=== PATIENT | female | born 1985 | race Caucasian/White ===

== ENCOUNTER 2017-04-20 17:00 | Inpatient (IN) | payer OTHER ==
[2017-04-20] MEDS ORDERED: AMPICILLIN - 100 ML IVPB ONE (17:30)
[2017-04-20] MEDS ORDERED: DEXTROSE 5%-LACTATED RINGERS 1,000 ML IV SCH (18:00)
[2017-04-20] MEDS ORDERED: TUBERCULIN PPD 5 TU/0.1ML SYRINGE (IN PATIENT USE ONLY) ID ONE (18:00)
[2017-04-20 18:35] VITALS: BMI 30.6
--- NOTE | 2017-04-20 18:53 | HP ---
Past Medical History - Primary Care Physician PCP:: Juliet Mendez - Admission Chief Complaint: 31yo P1 @ 39.6wks admitted for augmentation of labor, + Fm, No VB, no LOF, + ctx History of Present Illness: 1. GBS + 2.Kidney donor History Source: Patient Limitations to Obtaining History: No Limitations - Past Medical History ...: 2 ...Para: 1 (2012, 9lb) ...Term: 1 ...: 0 ...Spon : 0 ...Induced : 0 ...Multiple Gestation: 0 ...LMP: 07/16/16 ... Weeks Gestation by Dates: 39.6 ...EDC by Dates: 04/21/17 ...EDC by Sono: 04/22/17 - Past Surgical History Hx Myomectomy: No Hx Transabdominal Cerclage: No Additional Surgical History: Kidney donor - Smoking History Smoking history: Never smoked Have you smoked in the past 12 months: No Aproximately how many cigarettes per day: 0 - Alcohol/Substance Use Hx Alcohol Use: No History of Substance Use: reports: None - Social History Usual Living Arrangement: Yes: With Spouse, With Child History of Recent Travel: No Home Medications - Allergies Allergies/Adverse Reactions: Allergies Allergy/AdvReac Type Severity Reaction Status Date / Time No Known Allergies Allergy Verified 04/20/17 17:45 - Home Medications Home Medications: Ambulatory Orders Pnv95/Ferrous Fumarate/FA [ Vitamin Tablet] 1 each PO DAILY 04/20/17 Review of Systems - Review of Systems Constitutional: reports: No Symptoms Eyes: reports: No Symptoms HENT: reports: No Symptoms Neck: reports: No Symptoms Cardiovascular: reports: No Symptoms Respiratory: reports: No Symptoms Gastrointestinal: reports: No Symptoms Genitourinary: reports: No Symptoms Breasts: reports: No Symptoms Reported Musculoskeletal: reports: No Symptoms Integumentary: reports: No Symptoms Neurological: reports: No Symptoms Endocrine: reports: No Symptoms Hematology/Lymphatic: reports: No Symptoms Psychiatric: reports: No Symptoms Physical Exam - Maternity Vital Signs: Vital Signs Temperature 98.1 F 04/20/17 17:00 Pulse Rate 87 04/20/17 17:00 Respiratory Rate 18 04/20/17 17:00 Blood Pressure 116/75 04/20/17 17:00 O2 Sat by Pulse Oximetry (%) Constitutional: Yes: Well Nourished Eyes: Yes: WNL HENT: Yes: WNL Neck: Yes: WNL Cardiovascular: Yes: WNL Lungs: Clear to auscultation Breast(s): Yes: WNL - Abdominal Exam/OB Fundal Height: 39 Number of Fetuses: Single Presentation: Vertex Contractions: Yes Regularity: Irregular Intensity: Mild Monitor Mode: External Heart Rate (range): 140 Heart Rate Location: Midline Category: I Accelerations: Uniform Decelerations: None - Vaginal Exam/OB Vaginal Bleediing: No Speculum Exam: No Dilatation (cm): 2-3 Effacement (%): 50% Amniotic Membrane Status: Intact Presentation: Vertex/Position Station: -3 - Physical Exam Musculoskeletal: Yes: WNL Extremities: Yes: WNL Edema: No Integumentary: Yes: WNL Deep Tendon Reflex Grade: Normal +2 ...Motor Strength: WNL Psychiatric: Yes: WNL Assessment/Plan 31yo P1 @ 39.6wks augmentation of labor Admit to L&D IVF, Labs MF status reassuring Ampicillin for GBS prophylaxis Oxytocin for augmentation now Epidural prior to AROM
[2017-04-20 19:23] LABS: BASOPHIL 0.4 % (0-2.0); MCH 27.6 pg (25.7-33.7); MCHC 33.1 g/dl (32.0-36.0); MEAN CELL VOLUME 83.3 fl (80-96); NEUTROPHILS 76.2 % (42.8-82.8); PLATELET COUNT 238 K/MM3 (134-434); RDW 14.6 % (11.6-15.6); WHITE BLOOD COUNT 10.6 K/mm3 (4.0-10.0)
[2017-04-20 19:39] LABS: ACTIVATED PTT 24.9 SECONDS (26.9-34.4)
[2017-04-20 19:51] LABS: CALCIUM 8.6 mg/dL (8.5-10.1); COCKROFT - GAULT 166.7445; CREATININE 0.6 mg/dL (0.55-1.02)
[2017-04-20] MEDS ORDERED: OXYTOCIN 15 UNITS/ LR 250 ML 250 ML IVPB SCH (21:00)
[2017-04-20] MEDS: AMPICILLIN - 100 ML IVPB SCH (21:30)
[2017-04-20] MEDS ORDERED: ELECTROLYTE-148 SOLN 500 ML IV ONE (23:00)
[2017-04-20] MEDS ORDERED: FENTANYL/BUPIVACAINE/NS/PF - PCEA - 50 ML DISP.SYRIN EP SCH (23:15)
[2017-04-21] MEDS ORDERED: ELECTROLYTE-148 SOLN 1,000 ML IV SCH
--- NOTE | 2017-04-21 00:57 | PN ---
Progress Note, Labor Vaginal Exam #1 Labor Exam Date: 04/21/17 Labor Exam Time: 00:45 Heart Rate (range): 145 good varriability, + accels, no decels Dilatation: 4 Effacement (%): 60% Amniotic Membrane Status: Ruptured (clear) Presentation: Vertex/Position Station: -3 Remarks: 31 yo P1 in early labor AROM for augmentation cont. Pitocin MF status reassuring rectum full of stool for enema
[2017-04-21] MEDS: AMPICILLIN - 100 ML IVPB SCH ×2 (01:30→05:30)
[2017-04-21] MEDS ORDERED: BISACODYL 10 MG SUPP.RECT RC PRN (08:04)
[2017-04-21] MEDS ORDERED: WITCH HAZEL 50% (TUCKS) 40 PAD/JAR PAD TP PRN (08:04)
[2017-04-21] MEDS ORDERED: METHYLERGONOVINE MALEATE 0.2 MG/1 ML AMP IM PRN (08:04)
[2017-04-21] MEDS ORDERED: BENZOCAINE 20% 57 GM BOTTLE TP PRN (08:04)
[2017-04-21] MEDS ORDERED: BENZOCAINE 28 GM HEMORRHOIDAL OINTMENT TP PRN (08:04)
--- NOTE | 2017-04-21 08:04 | PN ---
Delivery - Delivery Type of Anesthesia: Epidural Episiotomy/Laceration: None EBL (cc): 300 Delivery, Single - Stages of Labor Date 1st Stage Initiatied: 04/20/17 Time 1st Stage Initiated: 21:30 Date 2nd Stage Initiated: 04/21/17 Time 2nd Stage Initiated: 07:15 Date of Delivery: 04/21/17 Time of Delivery: 07:44 Date Placenta Delivered: 04/21/17 Time Placenta Delivered: 07:46 Placenta: Yes: Spontaneous - Condition of Infant Public Health Nutritionist/Senior Web Services Developer Present: No Gender: Male Weight: 7 lb 4 oz Position: Left, OA - 1 Minute Total Score: 9 5 Minutes Total Score: 9 - [place] Feeding Plan Initial Plan: Elected not to breastfeed exclusively throughout hospitalization Benefits of Exclusively reinforced: Yes Remarks - Remarks Remarks: Uncomplicated head and shoulder delivery cord around the neck once, reduced No lacerations Delayed cord clamping Mother and baby stable in LDR
[2017-04-21] MEDS ORDERED: D5W-LR W/ 20 UNITS OXYTOCIN 1,000 ML IV SCH (08:15)
[2017-04-21] MEDS: IBUPROFEN 600 MG TABLET (FP) PO PRN ×2 (09:50→15:31)
[2017-04-21] MEDS: ACETAMINOPHEN 325 MG TABLET (FP) PO PRN ×2 (09:50→15:32)
--- NOTE | 2017-04-21 09:51 | HOSP ---
Subjective - Review of Symptoms Events since last encounter: This is a 31 yo woman who presented for delivery of child who fell while attempting to ambulate s/p vaginal delivery. She attempted to ambulate and felt weak s/p epidural anesthesia for delivery. The patient states she fell onto b/l knees then forward onto her hands. She denies head trauma. CNII-XII intact. Patient still with decreased sensation to BLE. Redness noted to b/l knees with right>left. No swelling appreciated. General: No: Chills, Night Sweats HEENT: No: Head Aches, Visual Changes Pulmonary: No: Dyspnea, Cough Cardiovascular: No: Chest Pain, Palpitations Gastrointestinal: Yes: Abdominal Pain. No: Nausea, Vomiting Genitourinary: No: Dysuria, Frequency Musculoskeletal: Yes: Joint Pain (b/l knees s/p fall) Neurological: Yes: Weakness (BLE). No: Numbness Physical Examination Vital Signs: Vital Signs Temperature 98.4 F 04/21/17 09:00 Pulse Rate 77 04/21/17 09:00 Respiratory Rate 18 04/21/17 09:00 Blood Pressure 118/66 04/21/17 09:00 O2 Sat by Pulse Oximetry (%) 100 04/21/17 07:30 Constitutional: Yes: Well Nourished, No Distress, Calm Eyes: Yes: Conjunctiva Clear, EOM Intact HENT: Yes: Atraumatic Neck: Yes: Supple, Trachea Midline Cardiovascular: Yes: Regular Rate and Rhythm Respiratory: Yes: Regular, CTA Bilaterally Gastrointestinal: Yes: Normal Bowel Sounds ...Rectal Exam: Yes: Deferred Musculoskeletal: Yes: Other (pain and erythema noted to b/l knees with R>L) Edema: LUE: 2+, RUE: 2+ Peripheral Pulses WNL: Yes Peripheral Pulses: Left Radial: 2+, Right Radial: 2+, Left Doralis Pedis: 2+, Right Dorsalis Pedis: 2+ Integumentary: Yes: Erythema (b/l anterior knees) ...Motor Strength: WNL Labs: CBC, BMP 04/20/17 19:00 04/20/17 19:11 Hospitalist Encounter Assessment: This is a 31 yo woman who presented for delivery of child who fell while attempting to ambulate s/p vaginal delivery. She attempted to ambulate and felt weak s/p epidural anesthesia for delivery. The patient states she fell onto b/l knees then forward onto her hands. She denies head trauma. CNII-XII intact. Patient still with decreased sensation to BLE. Redness noted to b/l knees with right>left. No swelling appreciated. No deformity present. (-) Vannesa's test. Outcome: xrays ordered for b/l knees. Wet read by me: -Left knee: No fractures present. -Right Knee: No fractures present. Official read by Joshua: No acute osseous deformities or fractures. No patellar effusion. #knee pain - Ice - Tylenol PRN -Case discussed with Vanessa operations controller. Aware of plan. Primary Physician Notified: Juliet Mendez Time PMD Notified: 10:55 Recommendations/Interventions: Ice packs PRN Tylenol PRN
[2017-04-21] MEDS: PRENATAL VITAMINS W/ FOLIC ACID TABLET (FP) PO SCH (10:00)
[2017-04-21] MEDS: FERROUS SO4 325 MG TABLET (FP) PO SCH ×2 (10:00→18:35)
[2017-04-22] MEDS: ACETAMINOPHEN 325 MG TABLET (FP) PO PRN ×4 (04:03→21:11)
[2017-04-22] MEDS: IBUPROFEN 600 MG TABLET (FP) PO PRN ×4 (04:03→21:12)
[2017-04-22 07:39] LABS: BASOPHIL 0.5 % (0-2.0); EOSINOPHIL 1.8 % (0-4.5); MCHC 33.4 g/dl (32.0-36.0); MEAN PLT VOLUME 8.8 fl (7.5-11.1); NEUTROPHILS 74.6 % (42.8-82.8); PLATELET COUNT 166 K/MM3 (134-434); WHITE BLOOD COUNT 10.3 K/mm3 (4.0-10.0)
[2017-04-22] MEDS: FERROUS SO4 325 MG TABLET (FP) PO SCH ×2 (08:58→17:02)
[2017-04-22] MEDS: PRENATAL VITAMINS W/ FOLIC ACID TABLET (FP) PO SCH (09:00)
--- NOTE | 2017-04-22 15:19 | PN ---
Post Progress Note - Subjective Subjective: No complaints. Post Day: 1 Type of Delivery: Vital Signs: Vital Signs Temperature 97.8 F 04/22/17 07:34 Pulse Rate 81 04/22/17 07:34 Respiratory Rate 18 04/22/17 07:34 Blood Pressure 111/66 04/22/17 07:34 O2 Sat by Pulse Oximetry (%) 100 04/21/17 07:30 Breast Exam: Yes: Soft Uterus: Yes: Fundus Firm, Fundus below umbilicus Abdomen/GI: Yes: Abdomen soft, Passing flatus, Tolerating PO Lochia: Yes: Rubra Lochia, amount: Small Extremities: Yes: Calves non-tender, Edema (trace) Perineum: Yes: Intact Activity: Ambulating - Labs Labs: CBC WBC 10.3 K/mm3 (4.0-10.0) H 04/22/17 06:40 RBC 3.34 M/mm3 (3.60-5.2) L 04/22/17 06:40 Hgb 9.4 GM/dL (10.7-15.3) L D 04/22/17 06:40 Hct 28.1 % (32.4-45.2) L D 04/22/17 06:40 MCV 84.0 fl (80-96) 04/22/17 06:40 MCHC 33.4 g/dl (32.0-36.0) 04/22/17 06:40 RDW 15.0 % (11.6-15.6) 04/22/17 06:40 Plt Count 166 K/MM3 (134-434) D 04/22/17 06:40 MPV 8.8 fl (7.5-11.1) 04/22/17 06:40 Neutrophils % 74.6 % (42.8-82.8) 04/22/17 06:40 Lymphocytes % 15.8 % (8-40) 04/22/17 06:40 Monocytes % 7.3 % (3.8-10.2) 04/22/17 06:40 Eosinophils % 1.8 % (0-4.5) 04/22/17 06:40 Basophils % 0.5 % (0-2.0) 04/22/17 06:40 Assessment/Plan 31yo P2 s/p , doing well stable, afebrile. care instructions reviewed. Continue routine care. Ambulation encouraged Discharge instruction reviewed.
[2017-04-22] MEDS ORDERED: SENNOSIDES/DOCUSATE COMBO (SENNA PLUS) TABLET (UD) PO PRN (22:00)
[2017-04-23] MEDS: ACETAMINOPHEN 325 MG TABLET (FP) PO PRN ×2 (05:34→11:47)
[2017-04-23] MEDS: IBUPROFEN 600 MG TABLET (FP) PO PRN ×2 (05:35→11:46)
--- NOTE | 2017-04-23 07:53 | PN ---
Post Progress Note - Subjective Subjective: Patient without acute complaints. Reports tolerating oral intake without nausea or vomiting. Ambulating without dizziness. Denies fevers or chills. Pain well controlled with oral pain medication. with supplementation. Passing flatus. Post Day: 2 Type of Delivery: Vital Signs: Vital Signs Temperature 98.3 F 04/22/17 22:00 Pulse Rate 75 04/22/17 22:00 Respiratory Rate 18 04/22/17 22:00 Blood Pressure 135/74 04/22/17 22:00 O2 Sat by Pulse Oximetry (%) 100 04/21/17 07:30 Breast Exam: Yes: Soft Uterus: Yes: Fundus Firm, Fundus below umbilicus Abdomen/GI: Yes: Abdomen soft, Passing flatus, Tolerating PO. No: Abdominal Distention, Tender Lochia, amount: Small Extremities: Yes: Calves non-tender, Edema (trace) Activity: Ambulating - Labs Labs: CBC WBC 10.3 K/mm3 (4.0-10.0) H 04/22/17 06:40 RBC 3.34 M/mm3 (3.60-5.2) L 04/22/17 06:40 Hgb 9.4 GM/dL (10.7-15.3) L D 04/22/17 06:40 Hct 28.1 % (32.4-45.2) L D 04/22/17 06:40 MCV 84.0 fl (80-96) 04/22/17 06:40 MCHC 33.4 g/dl (32.0-36.0) 04/22/17 06:40 RDW 15.0 % (11.6-15.6) 04/22/17 06:40 Plt Count 166 K/MM3 (134-434) D 04/22/17 06:40 MPV 8.8 fl (7.5-11.1) 04/22/17 06:40 Neutrophils % 74.6 % (42.8-82.8) 04/22/17 06:40 Lymphocytes % 15.8 % (8-40) 04/22/17 06:40 Monocytes % 7.3 % (3.8-10.2) 04/22/17 06:40 Eosinophils % 1.8 % (0-4.5) 04/22/17 06:40 Basophils % 0.5 % (0-2.0) 04/22/17 06:40 Assessment/Plan 31 yo ppd2 sp , doing well 1. Patient stable for discharge home today. 2. Patient encouraged to contact MD for: - Severe pain not controlled by oral pain medication - Fevers or chills - Nausea or vomiting, intolerance of oral intake 3. Patient to follow up in office in 4-6 weeks for visit
[2017-04-23] MEDS: FERROUS SO4 325 MG TABLET (FP) PO SCH (08:27)
[2017-04-23 09:43] VITALS: BP 113/74; PULSE 66; TEMP 98.5
[2017-04-23] MEDS: PRENATAL VITAMINS W/ FOLIC ACID TABLET (FP) PO SCH (10:17)
--- NOTE | 2017-05-05 09:59 | DS ---
Physical Exam-DETENTION SERGEANT Vital Signs: Vital Signs Temperature 98.5 F 04/23/17 09:41 Pulse Rate 66 04/23/17 09:41 Respiratory Rate 18 04/23/17 09:41 Blood Pressure 113/74 04/23/17 09:41 O2 Sat by Pulse Oximetry (%) 100 04/21/17 07:30 Constitutional: Yes: Well Nourished Eyes: Yes: WNL HENT: Yes: WNL Neck: Yes: WNL Cardiovascular: Yes: WNL Respiratory: Yes: WNL Gastrointestinal: Yes: WNL Renal/: Yes: WNL Pelvis: Yes: WNL External Genitalia: Yes: Normal Vaginal Exam: Yes: Normal Uterus: Yes: Normal ....Post : Yes: Uterus firm, Uterus non-tender Breast(s): Yes: WNL Musculoskeletal: Yes: WNL Extremities: Yes: WNL Neurological: Yes: WNL ...Motor Strength: WNL Psychiatric: Yes: WNL Labs: CBC, BMP 04/22/17 06:40 04/20/17 19:11 Delivery - Delivery Type of Anesthesia: Epidural Episiotomy/Laceration: None EBL (cc): 300 Delivery, Single - Stages of Labor Date 1st Stage Initiatied: 04/20/17 Time 1st Stage Initiated: 21:30 Date 2nd Stage Initiated: 04/21/17 Time 2nd Stage Initiated: 07:15 Date of Delivery: 04/21/17 Time of Delivery: 07:44 Time Placenta Delivered: 07:46 Placenta: Yes: Spontaneous - Condition of Infant Edi Architect/Application Support Consultant Present: No Gender: Male Weight: 7 lb 4 oz Position: Left, OA Total Hours ROM (Hrs/Mins): 7HRS 2MIN - 1 Minute Total Score: 9 5 Minutes Total Score: 9 - [place] Feeding Plan Initial Plan: Elected not to breastfeed exclusively throughout hospitalization Benefits of Exclusively reinforced: Yes Discharge Summary Reason For Visit: INDUCTION OF LABOR Condition: Good - Instructions Diet, Activity, Other Instructions: Physical activity Resume your normal everyday activity as tolerated no heavy lifting or exercise until seen by your surgeon. You may walk unlimited pravin of and climb stairs. You may resume driving the car when you feel safe and comfortable behind the wheel. No sexual activity as instructed. Wound care If you have a bandage, leave it on, and keep dry for 48-72 hours. After that time discard the outer bandage. If they are tapes on the skin under the out of bandage leave them in place. They will peel off in the next 7 to 10 days. Do Not Peel them off. You may shower the day after surgery. If there are tapes present on the skin, you may shower over them. Diet There are no dietary restrictions. Eat healthy, high-fiber foods. Drink 6 to 8 glasses of liquid each day. This will assist in keeping your bowels are regular. Pain management You may take Tylenol or acetaminophen or Ibuprofen (for example, Motrin, Advil etc.) from my pain prescription medication is ordered should be taken as prescribed for moderate to severe pain. Call MD for any of the following: Severe pain not relieved by medication Fever of 101 or higher Excessive bleeding or drainage on dressing Inability to urinate Referrals: Jluiet Mendez MD [Staff Physician] - Disposition: HOME - Home Medications Comprehensive Discharge Medication List: Ambulatory Orders Pnv95/Ferrous Fumarate/FA [ Vitamin Tablet] 1 each PO DAILY 04/20/17
== END 2017-04-23 13:00 | disposition home or self-care (01) | DRG 775 ==
LOC: JLDR 17:00 → J3W 04-21 11:10
PROVIDERS: ADMIT Obstetrics & Gynecology; ATTEND Obstetrics & Gynecology
PROC: 10E0XZZ Delivery of Products of Conception, External Approach (ICD-10-PCS; principal; 2017-04-21)
DX: O69.81X0 Labor and delivery complicated by cord around neck, without compression, not applicable or unspecified (principal); Z3A.39 39 weeks gestation of pregnancy; Z22.330 Carrier of Group B streptococcus; Z37.0 Single live birth
CPT/HCPCS: 36415; 59409; 73560-TC-LT; 73560-TC-RT; 80048; 85025; 85610; 85730; 86593; 86850; 86900; 86901

== ENCOUNTER 2023-04-06 09:16 | Emergency (ER) | payer BC, OTHER ==
[2023-04-06 09:23] VITALS: BP 131/82; PULSE 78; RESP 18; TEMP 98.4; BMI 25.3
[2023-04-06] MEDS ORDERED: KETOROLAC TROMETHAMINE 30 MG/1 ML VIAL IM ONE (11:10)
[2023-04-06] MEDS ORDERED: KETOROLAC TROMETHAMINE 30 MG/1 ML VIAL ONE (11:25)
== END 2023-04-06 12:06 | disposition home or self-care (01) ==
LOC: JERFT 09:16
PROC: 3E0233Z Introduction of Anti-inflammatory into Muscle, Percutaneous Approach (ICD-10-PCS; principal; 2023-04-06)
DX: S93.491A Sprain of other ligament of right ankle, initial encounter (principal); W10.9XXA Fall (on) (from) unspecified stairs and steps, initial encounter; X50.0XXA Overexertion from strenuous movement or load, initial encounter
CPT/HCPCS: 73610-TC-RT-FY; 73630-TC-RT-FY; 84703; 99284-25